=== PATIENT | female | born 1975 | race American Indian/Alaskan Native ===

== ENCOUNTER 2016-10-21 06:00 | Day surgery (SDC) | payer MEDICAID ==
[~2016-10-21 06:00] MED LIST: NACL 0.9% 1000 ML 1,000 ML IV SCH; PEPCID PO NR; VERSED IV NR
[2016-10-21] MEDS ORDERED: NACL BACTERIOSTATIC INFILTRATI ONE (06:20)
[2016-10-21] MEDS ORDERED: XYLOCAINE MPF 2% ONE (06:31)
--- NOTE | 2016-10-21 06:38 | Short Stay Summary ---
Short Stay Documentation Date of service: 10/21/16 Narrative H&P: 41y/o @ 8 weeks ega with findings of an embryonic demise. She denies any passage of tissue. - History Principal diagnosis: Missed H&P: obtained from office Past Medical History: arthritis Past Surgical History: No surgical history Social history: - Allergies and Medications Current Medications: Allergies No Known Allergies Allergy (Verified 10/21/16 01:53) Home Medications Medication Instructions Recorded Confirmed Last Taken Type ALBUTEROL Inhaler [Proair] 2 puff IH QID PRN 10/19/16 10/19/16 Unknown History Active Medications Famotidine (Pepcid) 20 mg PO PREOP NR Stop: 10/21/16 23:59 Sodium Chloride (Nacl 0.9% 1000 Ml) 1,000 mls @ 75 mls/hr IV DIRECT NEYMAR Midazolam HCl (Versed) 2 mg IV PREOP NR Stop: 10/21/16 23:59 - Physical exam General appearance: no acute distress Integumentary: no rash HEENT: Atraumatic Lungs: Clear to auscultation Breasts: deferred Heart: Regular rate Gastrointestinal: normal Female Genitourinary: deferred Rectal Exam: deferred Neurological: no Normal gait - Brief post op/procedure progress note Date of procedure: 10/21/16 Pre-op diagnosis: missed Post-op diagnosis: same Procedure: Suction dilatation and curettage Anesthesia: ROBEA Surgeon: JENNIFER MANZANO Estimated blood loss: other (150ml) Pathology: list (products of conception) Specimen disposition: to lab Condition: stable - Hospital course Hospital course: The patient was admitted the day of surgery and underwent a suction dilatation and curettage for an embryonic demise. Please see operative note for details of surgery. Her postoperative course was uneventful. - Disposition Condition at discharge: Good Disposition: DISCHARGED TO HOME OR [facility] Short Stay Discharge Plan Activity: other (pelvic rest for 2 weeks) Diet: regular Additional Instructions: Patient may follow-up in [facility] in 2-4 weeks Prescriptions: Ibuprofen [Motrin] 800 mg PO Q8HR PRN #60 tablet PRN Reason: Pain oxyCODONE /ACETAMINOPHEN [Percocet 5/325] 1 tab PO Q6HR PRN #30 tablet PRN Reason: Pain
[2016-10-21] MEDS ORDERED: DIPRIVAN 10 MG/ML IV ONE (06:46)
[2016-10-21] MEDS ORDERED: SUBLIMAZE ONE (06:47)
--- NOTE | 2016-10-21 07:15 | Anesthesia Day of Surgery ---
Anesthesia Day of Surgery - Day of Surgery Patient Examined: Yes Patient H&P Reviewed: Yes Patient is NPO: Yes Beta Blockers: No Cardiac Clearance: No Pulmonary Clearance: No
--- NOTE | 2016-10-21 07:17 | Anesthesia Consultation ---
Anesthesia Consult and Med Hx Date of service: 10/21/16 - Airway Anesthetic Teeth Evaluation: Good ROM Head & Neck: Adequate Mental/Hyoid Distance: Adequate Mallampati Class: Class II Intubation Access Assessment: Probably Good - Pulmonary Exam CTA: Yes (clear blbs) - Cardiac Exam Cardiac Exam: RRR - Pre-Operative Health Status ASA Pre-Surgery Classification: ASA3 Proposed Anesthetic Plan: General - Pulmonary Hx Smoking: Yes Hx Asthma: Yes (last used inhaler 10/15/16 mild) - Central Nervous System Hx Neuromuscular Disorder: Yes (OA) Hx Psychiatric Problems: Yes - Gastrointestinal Hx Gastroesophageal Reflux Disease: No - Other Systems Hx Cancer: No Hx Obesity: Yes
[2016-10-21] MEDS ORDERED: METHERGINE IM ONE ×2 (07:32→07:45)
[2016-10-21] MEDS ORDERED: SILVER NITRATE TP ONE (07:32)
[2016-10-21] MEDS ORDERED: ZOFRAN ONE (07:36)
[2016-10-21] MEDS ORDERED: DECADRON ONE (07:36)
[2016-10-21] MEDS ORDERED: NACL 0.9% IR ONE (07:45)
--- NOTE | 2016-10-21 08:01 | Operative Report ---
Operative Report Operative Report: Date of surgery: 10/21/2016 Preoperative diagnosis: Missed Postoperative diagnosis: Same as above Procedure: Suction dilatation and curettage Surgeon: Roya Mtz M.D. Anesthesia: Gen. endotracheal anesthesia Estimated blood loss: 150 mL Findings: Products of conception Indication: 41-year-old 004 at approximately 8 weeks estimated gestational age with findings of an embryonic demise. Procedure: The patient was taken to the operating room and given general endotracheal anesthesia without complication. The patient is prepped and draped in a normal sterile fashion. A bivalve speculum was placed in the patient's vagina and a single-tooth tenaculums placed on the anterior lip of the cervix. The uterine cavity was then sounded. The cervical os was then dilated with graduated dilators. A number 9 Urdu curved cannula was placed to suction and found to be adequate. The cannula was then gently inserted into the dilated cervical os. Evacuation of the uterine contents were performed. Sharp curettage and endometrial surface was performed until cry was achieved. The cannula was then gently reinserted into the uterine cavity to evacuate any additional contents. After removal of the cannula there was no evidence of any active bleeding. The vaginal instruments were then removed atraumatically. The patient was then successfully extubated and taken to the recovery room in stable condition. All sponge laps and needle counts were correct 2. Pathology consisted of products of conception.
[2016-10-21] MEDS ORDERED: ZOFRAN IV PRN (08:15)
[2016-10-21] MEDS: DILAUDID IV PRN ×2 (08:34→08:45)
--- NOTE | 2016-10-21 08:37 | Post Anesthesia Evaluation ---
- Post Anesthesia Evaluation Patient Participated: Yes Airway Patent: Yes Stable Respiratory Function: Yes Nausea/Vomiting: No Temp > 96.8F: Yes Pain Manageable: Yes Adequeate Hydration: Yes Anesthesia Complications: No Block Receding Appropriately: Not Applicable Patient on Ventilator: No
[2016-10-21 09:36] VITALS: BP 118/77
== END 2016-10-21 09:45 | disposition home or self-care (01) ==
LOC: OR 06:00
PROVIDERS: ATTEND Obstetrics & Gynecology
DX: O02.1 Missed abortion (principal); M19.90 Unspecified osteoarthritis, unspecified site; J45.909 Unspecified asthma, uncomplicated; E66.9 Obesity, unspecified; Z68.36 Body mass index [BMI] 36.0-36.9, adult; Z87.891 Personal history of nicotine dependence
CPT/HCPCS: 59820; 86900; 86901; 88305; J1100; J1170; J2210; J2250; J2405; J2704; J3010; J7030